=== PATIENT | female | born 1980 ===

== ENCOUNTER 2017-03-09 18:17 | Inpatient (IN) | payer BC ==
[2017-03-10] MEDS ORDERED: ceFOXitin 2 GM IVPREMIX* 2 GM/50 ML BAG IVPB ONE (07:13)
[2017-03-10] MEDS ORDERED: Sodium Citrate/Citric Acid* 15 ML UDC PO ONE (07:13)
[2017-03-10] MEDS ORDERED: diPHENhydraMINE IV* 50 MG/ML 1 ml VIAL (BENADRYL) IV PRN ×2 (07:15→09:58)
[2017-03-10] MEDS ORDERED: Nalbuphine* 20 MG/ML 1 ML VIAL IV PRN ×3 (07:15→09:58)
[2017-03-10] MEDS ORDERED: fentaNYL* 50 MCG/ML 2 ML VIAL (100 MCG VIAL) IV PRN (07:15)
[2017-03-10] MEDS ORDERED: DiMENhydriNATE IV* 50 MG/ML VIAL IV PUSH PRN (07:15)
[2017-03-10] MEDS ORDERED: Morphine INJ* 2 MG/ML 1 ML SYRINGE IV PRN (07:15)
[2017-03-10] MEDS ORDERED: Ondansetron INJ* 2 MG/ML VIAL IV PRN ×2 (07:15→09:58)
[2017-03-10] MEDS ORDERED: HYDROmorphone* 1 MG/ML 1 ML SYR IV PRN (07:15)
[2017-03-10] MEDS ORDERED: Acetaminophen TAB* 325 MG PO PRN ×2 (07:15→09:58)
[2017-03-10] MEDS ORDERED: Buffered Lidocaine 0.9% SYRIN* 5 ML/SYR SYRINGE INTRADERM ONE (07:17)
[2017-03-10] MEDS ORDERED: Ondansetron INJ* 2 MG/ML VIAL IV ONE (07:17)
[2017-03-10] MEDS ORDERED: Metoclopramide IV* 5 MG/ML 2 ML VIAL IV SLOW PU ONE (07:17)
[2017-03-10] MEDS ORDERED: Ketorolac INJ* 30 MG/ML 1 ML VIAL ONE (07:35)
[2017-03-10] MEDS ORDERED: Sterile Water for Inj* 10 ML ONE (07:35)
[2017-03-10] MEDS ORDERED: EPHEDrine (Pressors)* 50 MG/ML VIAL ONE (07:35)
[2017-03-10] MEDS ORDERED: Phenylephrine IV* 40 MCG/ML 10 ML SYRINGE ONE (07:35)
[2017-03-10] MEDS ORDERED: fentaNYL* 50 MCG/ML 2 ML VIAL (100 MCG VIAL) ONE (07:37)
[2017-03-10] MEDS ORDERED: Morphine PF AMP (0.5MG/ML)* 5 MG/10 ML AMP ONE (07:37)
[2017-03-10] MEDS ORDERED: OXYTOCIN* 10 UNITS/ML 1 ML VIAL ONE (07:45)
[2017-03-10] MEDS ORDERED: Methylergonovine INJ* 0.2 MG/ML 1ML AMP ONE (09:20)
[2017-03-10] MEDS ORDERED: Zolpidem TAB* 5 MG PO PRN (09:50)
[2017-03-10] MEDS ORDERED: Witch Hazel PAD* JAR TOPICAL PRN (09:50)
[2017-03-10] MEDS ORDERED: Methylergonovine INJ* 0.2 MG/ML 1ML AMP IM ONE (09:50)
[2017-03-10] MEDS ORDERED: Glycerin ADULT SUPP PR PRN (09:50)
[2017-03-10] MEDS ORDERED: Dibucaine 1% 28.35 GM TUBE PR PRN (09:50)
[2017-03-10] MEDS ORDERED: HYDROcodone/ACETAMIN 5-325 MG* 1 TAB PO PRN (09:58)
[2017-03-10] MEDS ORDERED: Naloxone* 0.4 MG/ML 1 ML VIAL IV PRN (09:58)
[2017-03-10] MEDS ORDERED: PROCHLORPERAZINE INJ 5 MG/ML 2 ML VIAL IV PRN (09:58)
[2017-03-10] MEDS ORDERED: oxyCODONE/Acetamin 5/325 MG* TAB PO PRN (09:58)
[2017-03-10] MEDS: Simethicone CHEW TAB* 80 MG PO SCH ×3 (12:35→22:15)
[2017-03-10] MEDS: Ketorolac INJ* 30 MG/ML 1 ML VIAL IV PRN ×2 (15:59→22:15)
--- NOTE | 2017-03-10 16:32 | OP ---
CC: Dr. Tompkins * DATE OF OPERATION: 03/10/17 - ROOM #[id number]-102 DATE OF : 84 SURGEON: Anthony Haq MD METERS SUPERINTENDENT: Dr. Tompkins. ANESTHESIA: Spinal. PRE-OP DIAGNOSIS: at 38 weeks with oligohydramnios and breech presentation. POST-OP DIAGNOSIS: at 38 weeks with oligohydramnios and breech presentation. OPERATIVE PROCEDURE: Primary low transverse section. ESTIMATED BLOOD LOSS: 600 cc. SPECIMEN SENT TO PATHOLOGY: Cord blood. IV FLUIDS: She received 750 cc of IV crystalloid fluid. URINE OUTPUT: 150 cc of clear urine. FINDINGS: Delivery of a viable female in solitario breech presentation, over clear fluid via breech extraction. She weighed 5 pounds 7 ounces. ' s were 9 and 9. The placenta was grossly intact with a 3-vessel cord noted. The uterus was within normal limits as well as the adnexa, bowel, and bladder, and there were no complications. DESCRIPTION OF PROCEDURE: The patient was taken to the operating room where she was identified. She was placed on the operating table where a spinal anesthetic was obtained without difficulty. She was then placed in the supine position with a leftward tilt, prepped and draped in a normal sterile fashion. A Pfannenstiel skin incision was then made with a knife and carried through to the underlying layer of fascia. The fascia was then nicked in the midline and extended laterally with curved Ramon scissors. The fascia was then grasped superiorly and inferiorly with Jorge clamps and dissected off sharply from the rectus muscle. The rectus muscle was in the midline bluntly. The peritoneum was identified, grasped with pickups, entered sharply with Metzenbaum scissors, and extended superiorly and inferiorly sharply. A bladder blade was then inserted into the patient's abdomen. A bladder flap was then created using Metzenbaum scissors over which the bladder blade was then reinserted. A low transverse uterine incision was made with a knife and extended laterally with bandage scissors. The amniotic sac was ruptured. Fluid was noted to be clear. The baby's breech was grasped and was elevated through breech extraction without any complications. The cord was clamped and cut, and the infant was handed off to awaiting cook chef. Cord bloods were obtained. The placenta was removed manually. The uterus was then exteriorized, cleared of all clot and debris using moist laparotomy sponges. The uterine incision was then closed using 0 Polysorb suture in a running locked fashion with a second imbricating layer of 0 Polysorb suture. Hemostasis of the uterine incision was noted. The uterus was then returned to the patient's abdomen. The gutters were then cleared of all clots and debris using moist laparotomy sponges. All the sponges and instruments were then removed from the patient's abdomen. At this point, we closed the peritoneum with 3-0 Polysorb suture in a running fashion. The fascia was closed with 0 Polysorb suture in a running fashion and the skin was closed with a 4-0 Monocryl subcuticular stitch. The patient tolerated the procedure well. Sponge, lap, needle counts were correct x2. She was then transferred to the recovery room area in stable condition. [id number]/[facility] #: [id number] ANJELICA
[2017-03-10] MEDS: Docusate CAP* 100 MG PO SCH ×2 (20:38→22:15)
[2017-03-11] MEDS ORDERED: oxyCODONE/Acetamin 5/325 MG* TAB PO PRN
[2017-03-11] MEDS ORDERED: Acetaminophen TAB* 325 MG PO PRN
[2017-03-11] MEDS: Ketorolac INJ* 30 MG/ML 1 ML VIAL IV PRN (05:38)
[2017-03-11 05:55] LABS: Comments Flag Yes; Hematocrit 30 % (35-47); Hemoglobin 10.2 g/dl (12.0-16.0); Mean Corpuscular HGB Conc 34 g/dl (31-36); Mean Corpuscular Hemoglobin 32 pg (27-31); Mean Corpuscular Volume 94 fL (80-97); Mean Platelet Volume 10 um3 (7.4-10.4); Red Blood Count 3.16 10^6/ul (4.0-5.4); Red Cell Distribution Width 14 % (10.5-15); White Blood Count 12.7 10^3/ul (3.5-10.8)
[2017-03-11] MEDS ORDERED: Measles, Mumps,Rubella VACC* 0.5 ML/VIAL SUBCUT ONE (09:00)
[2017-03-11] MEDS ORDERED: Ferrous Gluconate TAB* 324 MG TAB PO SCH (09:00)
[2017-03-11] MEDS: Docusate CAP* 100 MG PO SCH ×3 (09:13→22:39)
[2017-03-11] MEDS: Simethicone CHEW TAB* 80 MG PO SCH ×4 (09:13→22:39)
[2017-03-11] MEDS: Ibuprofen TAB* 600 MG PO PRN ×2 (12:17→18:04)
[2017-03-11] MEDS ORDERED: RHO D Immune Globulin (HUMAN)* 300 MCG = 1,500 I.U. INJ IM ONE (14:33)
[2017-03-11] MEDS: oxyCODONE/Acetamin 5/325 MG* TAB PO PRN (19:39)
[2017-03-12] MEDS: Ibuprofen TAB* 600 MG PO PRN ×5 (00:01→23:33)
[2017-03-12] MEDS: Docusate CAP* 100 MG PO SCH ×3 (08:53→21:31)
[2017-03-12] MEDS: Simethicone CHEW TAB* 80 MG PO SCH ×4 (08:53→21:31)
[2017-03-12] MEDS: oxyCODONE/Acetamin 5/325 MG* TAB PO PRN ×2 (11:18→23:27)
--- NOTE | 2017-03-12 11:22 | PTEDU ---
Patient Name: SHILA BONNER SHILA BONNER selected video: BBOB: Nurturing Your Gorgeous \T\Growing Baby by to view on 03/12/2017 at 11:21:05 AM [id number]
[2017-03-13] MEDS: Ibuprofen TAB* 600 MG PO PRN ×2 (06:45→13:16)
[2017-03-13 08:27] VITALS: BP 132/85
[2017-03-13] MEDS: Simethicone CHEW TAB* 80 MG PO SCH ×2 (10:59→13:26)
[2017-03-13] MEDS: Docusate CAP* 100 MG PO SCH ×2 (10:59→13:16)
== END 2017-03-13 15:00 | disposition home or self-care (01) | DRG 540 ==
LOC: MCHOB 03-10 06:02
PROVIDERS: ADMIT Obstetrics & Gynecology; ATTEND Obstetrics & Gynecology
PROC: 10D00Z1 Extraction of Products of Conception, Low, Open Approach (ICD-10-PCS; principal; 2017-03-10 08:40)
DX: O32.1XX0 Maternal care for breech presentation, not applicable or unspecified (principal); O41.03X0 Oligohydramnios, third trimester, not applicable or unspecified; Z3A.38 38 weeks gestation of pregnancy; Z37.0 Single live birth
CPT/HCPCS: 36415; 85025; 85461; 86900; 86901; 90707; A9270-GY; J0694; J1885; J2210; J2405; J2590; J2765; J2790; J3010